=== PATIENT | female | born 1985 | race Two or more races ===

== ENCOUNTER 2018-03-27 06:06 | Inpatient (IN) ==
[2018-03-27] MEDS ORDERED: ONDANSETRON 4 MG/2 ML VIAL IV PRN (06:27)
[2018-03-27] MEDS ORDERED: MEPERIDINE 50 MG/1 ML VIAL IV PRN (06:27)
[2018-03-27] MEDS ORDERED: LACTATED RINGERS 1,000 ML IV ONE (06:28)
[2018-03-27] MEDS ORDERED: LACTATED RINGERS 1,000 ML IV SCH ×2 (06:30→12:30)
[2018-03-27] MEDS ORDERED: OXYTOCIN/LR 20 UNIT/1,000 ML BAG IV SCH (06:30)
[2018-03-27 06:53] LABS: Basophils % 0.3 % (0.0-0.8); Eosinophils # 0.1 10*3/uL (0.0-0.87); Hemoglobin 11.2 GM/DL (12.0-16.0); Immature Granulocytes % 0.9 %; Immature Granulocytes Absolute 0.09 #; Lymphocytes # 2.5 10*3/uL (1.4-4.0); Lymphocytes % 25.4 % (21.3-54.2); Mean Corpuscular HGB Conc 33.9 GM/DL (32-36); Mean Corpuscular Hemoglobin 30 PG (27-34); Mean Corpuscular Volume 87.8 FL (87-102); Mean Platelet Volume 11.4 FL (9.6-12.0); Monocytes # 0.6 10*3/uL (0.11-0.8); Monocytes % 6.5 % (1.7-12.7); Neutrophils # 6.4 10*3/uL (1.4-7.4); Neutrophils % 65.9 % (38.7-73.9); Platelet Count 200 T/CUMM (130-400); Red Blood Count 3.76 MC/CUMM (3.8-5.5); Red Cell Distribution Width 12.8 % (9.3-17.3); White Blood Count 9.7 T/CUMM (4-12)
[2018-03-27 07:14] LABS: Albumin 2.6 G/DL (3.4-5.0); Bilirubin,Total 0.8 MG/DL (0.2-1.0); Calcium 8.2 MG/DL (8.5-10.1); Osmolality,Calculated 272.7 MOS/KG (273-304); Potassium 3.5 MMOL/L (3.5-5.1); Total Protein 6.4 G/DL (6.4-8.3); Uric Acid 4.5 MG/DL (2.6-6.0)
[2018-03-27] MEDS ORDERED: CITRIC ACID/SODIUM CITRATE 30 ML UDCUP PO ONE (12:07)
[2018-03-27] MEDS ORDERED: ePHEDrine 50 MG/ML AMP IV PRN (12:07)
[2018-03-27] MEDS ORDERED: FAMOTIDINE 20 MG/2 ML VIAL IV ONE (12:07)
[2018-03-27] MEDS ORDERED: hydrOXYzine HCL 25 MG/1 ML VIAL IM PRN (12:08)
[2018-03-27] MEDS ORDERED: diphenhydrAMINE 50 MG/1 ML VIAL IV PRN ×2 (12:08)
[2018-03-27] MEDS ORDERED: NALOXONE 0.4 MG/ML VIAL IV PRN (12:08)
[2018-03-27] MEDS ORDERED: PROMETHAZINE 25 MG/1 ML VIAL IM ONE (12:08)
[2018-03-27] MEDS ORDERED: fentaNYL 2 MCG/ROPIV 0.2% EPID 100 ML EPIDURAL SCH (12:30)
[2018-03-27 13:54] LABS: Apearance,Urine CLEAR (Clear); Bilirubin,Urine Negative (Negative); Blood, Urine Negative (Negative); Glucose,Urine (UA) Negative (Negative); Ketones,Urine 5 mg/dL (Negative); Nitrite,Urine Negative (Negative); Protein,Urine Negative; RBC,Urine <1 /HPF (0-4); Urine Color Yellow (Yellow); Urine Urobilinogen < 2.0 EU/DL (0.2-1.0); WBC,Urine 1 /HPF (0-6)
[2018-03-27] MEDS ORDERED: miSOPROStol 200 MCG TABLET ONE (17:04)
[2018-03-27] MEDS ORDERED: LIDOCAINE 1% 50 ML VIAL ONE (17:04)
[2018-03-27] MEDS ORDERED: METHYLERGONOVINE 0.2 MG/1 ML AMP ONE (17:05)
[2018-03-27 17:57] LABS: Cord Arterial Blood HCO3 17.4 MMOL/L
[2018-03-27 17:58] LABS: Cord Venous Blood HCO3 22.7 MMOL/L; Cord Venous Blood PCO2 47.7 MMHG; Cord Venous Blood PO2 25.6 MMHG
[2018-03-27] MEDS ORDERED: OXYTOCIN/LR 20 UNIT/1,000 ML BAG IV ONE (18:44)
[2018-03-27] MEDS ORDERED: MEASLES/MUMPS/RUBELLA VACCINE 0.5 ML VIAL SUBCUT ONE (20:58)
[2018-03-27] MEDS ORDERED: WITCH HAZEL PADS 100/JAR TOP PRN (20:58)
[2018-03-27] MEDS ORDERED: ACETAMINOPHEN/CODEINE 300-30 MG TABLET PO PRN (20:58)
[2018-03-27] MEDS ORDERED: LANOLIN 50% CREAM 0.3 OZ TUBE TOP PRN (20:58)
[2018-03-27] MEDS ORDERED: DIPH/TET/ACEL PERT BOOSTER VACCINE 0.5 ML VIAL IM ONE (20:58)
[2018-03-27] MEDS ORDERED: HYDROCORTISONE 2.5% RECTAL CREAM 30 GM TUBE TOP PRN (20:58)
[2018-03-27] MEDS ORDERED: BENZOCAINE 20%/MENTHOL 0.5% SPRAY 56 GM CAN TOP PRN (20:58)
[2018-03-27] MEDS ORDERED: ACETAMINOPHEN 325 MG TABLET PO PRN (20:58)
[2018-03-27] MEDS ORDERED: RHO(D) IMMUNE GLOBULIN 300 MCG SYRINGE IM ONE (20:58)
[2018-03-27] MEDS ORDERED: BISACODYL 10 MG SUPP RECTAL PRN (20:58)
[2018-03-27] MEDS ORDERED: oxyCODONE/ACETAMINOPHEN 5-325 MG TABLET PO PRN ×2 (20:58)
[2018-03-27] MEDS: DOCUSATE SODIUM 100 MG CAPSULE PO SCH (22:13)
[2018-03-28] MEDS: IBUPROFEN 800 MG TABLET PO PRN ×2 (03:56→15:16)
[2018-03-28 05:47] LABS: Basophils # 0.1 10*3/uL (0.0-0.2); Basophils % 0.4 % (0.0-0.8); Eosinophils # 0.1 10*3/uL (0.0-0.87); Eosinophils % 0.5 % (0.00-10.9); Hematocrit 31.4 VOL% (35.7-47.0); Hemoglobin 10.6 GM/DL (12.0-16.0); Immature Granulocytes % 0.7 %; Immature Granulocytes Absolute 0.11 #; Lymphocytes % 13.2 % (21.3-54.2); Mean Corpuscular HGB Conc 33.8 GM/DL (32-36); Mean Corpuscular Hemoglobin 30 PG (27-34); Mean Corpuscular Volume 88.7 FL (87-102); Monocytes # 0.9 10*3/uL (0.11-0.8); Monocytes % 5.8 % (1.7-12.7); Neutrophils # 11.9 10*3/uL (1.4-7.4); Neutrophils % 79.4 % (38.7-73.9); Platelet Count 151 T/CUMM (130-400); Red Blood Count 3.54 MC/CUMM (3.8-5.5); Red Cell Distribution Width 12.7 % (9.3-17.3); White Blood Count 14.9 T/CUMM (4-12)
[2018-03-28] MEDS: DOCUSATE SODIUM 100 MG CAPSULE PO SCH ×2 (08:40→21:19)
[2018-03-28] MEDS ORDERED: ONDANSETRON 4 MG TABLET PO PRN (10:08)
[2018-03-29] MEDS: DOCUSATE SODIUM 100 MG CAPSULE PO SCH (09:45)
[2018-03-29 10:08] VITALS: BP 112/71
[2018-03-29] MEDS ORDERED: INFLUENZA VIRUS VACCINE 0.5 ML SYRINGE IM ONE (10:30)
[2018-03-29] MEDS: IBUPROFEN 800 MG TABLET PO PRN (12:46)
== END 2018-03-29 13:30 | disposition home or self-care (01) | DRG 807 ==
LOC: N.LDOUT 06:06 → N.LD 06:10 → N.OB 20:45
PROVIDERS: ADMIT Obstetrics & Gynecology; ATTEND Obstetrics & Gynecology